=== PATIENT | female | born 1980 | race Caucasian/White ===

== ENCOUNTER → 2016-06-12 | Outpatient (CLI) | payer BC ==
[~2016-06-12] MED LIST: PRENTAB26 PO
[2016-06-12 12:20] LABS: HEMATOCRIT 35.5 % (37-47)
[2016-06-12 12:45] LABS: GTGD 50 Grams
[2016-06-12 15:02] LABS: URINE APPEARANCE CLEAR (CLEAR); URINE BILIRUBIN NEG (NEG); URINE COLOR YELLOW; URINE NITRITE NEG (NEG); URINE PH 5.5 (4.5-7.5); URINE SPECIFIC GRAVITY 1.018 (1.000-1.030); UROBILINOGEN NEG (NEG)
[2016-06-12 15:14] LABS: MANUAL MICROSCOPIC REQUIRED? NO; REVIEW REQ? NO
== END | disposition home or self-care (01) ==
LOC: C.LAB1850 10:50
PROVIDERS: ATTEND Obstetrics & Gynecology
DX: O09.523 Supervision of elderly multigravida, third trimester (principal)

== ENCOUNTER → 2016-08-08 | Outpatient (CLI) | payer BC | END | disposition home or self-care (01) | LOC: C.LABSPEC 15:19 | PROVIDERS: ATTEND Obstetrics & Gynecology | DX: O09.523 Supervision of elderly multigravida, third trimester (principal) ==

== ENCOUNTER 2016-08-19 14:19 | Inpatient (IN) | payer BC ==
[~2016-08-19] VITALS: Ht 165.1 cm; Wt 123.6 kg
[2016-08-19] MEDS ORDERED: LACTATED RINGER'S 1000ML 1,000 ML IV SCH (14:50)
[2016-08-19] MEDS ORDERED: LACTATED RINGER'S 1000ML 1,000 ML IV PRN (14:50)
[2016-08-19] MEDS ORDERED: LACTATED RINGER'S 1000ML 500 ML IV PRN (14:53)
[2016-08-19] MEDS ORDERED: OXYTOCIN 30 UNITS/500ML NSS IV PRN ×2 (15:00→20:30)
[2016-08-19 15:35] LABS: HEMATOCRIT 34.3 % (37-47); MEAN CELL VOLUME 84.3 fL (80-100); MEAN CORPUSCULAR HEMOGLOBIN 29.2 pg (25-34); MEAN CORPUSCULAR HGB CONC 34.7 g/dl (32-36); MEAN PLATELET VOLUME 11.2 fL (7.4-10.4); PLATELET COUNT 208 K/uL (130-400); RED BLOOD COUNT 4.07 M/uL (4.2-5.4); WHITE BLOOD COUNT 11.45 K/uL (4.8-10.8)
[2016-08-19] MEDS ORDERED: PRENTAB26 PO (15:58)
[2016-08-19 15:59] VITALS: Ht 165.1 cm; Wt 123.6 kg
[2016-08-19] MEDS ORDERED: BENZOCAINE 20% AER SPR 82.5 GM CAN EXT PRN (20:30)
[2016-08-19] MEDS ORDERED: LANOLIN OINT EXT PRN ×2 (20:30)
[2016-08-19] MEDS ORDERED: ACETAMINOPHEN/CODEINE 300/30MG TAB PO PRN ×2 (20:30)
[2016-08-19] MEDS ORDERED: SUPERCREAM 0.870 % 15GM JAR EXT PRN (20:30)
[2016-08-19] MEDS ORDERED: ACETAMINOPHEN 325 MG TAB PO PRN (20:30)
--- NOTE | 2016-08-19 21:03 | DELIVERY SUMMARY ---
DATE OF OPERATION: 08/19/2016 DELIVERY NOTE: The patient is a 36-year-old 2, para 1-0-0-1 white female, EDC of 09/02/2016, who presented with leaking amniotic fluids at approximately 2300 hours on 08/18/2016. She had presented at the office for a check for rupture of membranes and indeed she was ruptured for clear fluid. She was sent to labor and delivery. Because of the absence of regular ctns. Pitocin augmentation of labor was begun. She moved rapidly to full dilation, pushed effectively over intact perineum for delivery of a viable male infant. Mouth and nasopharynx were suctioned on the perineum, the was placed on the mother's abdomen for further attention and stimulation. There was vigorous crying and the infant was moving all 4 limbs. The cord was clamped and cut and the placenta was expressed intact with a 3-vessel cord. 1% lidocaine was used to anesthetize the first degree perineal tear, which was repaired with 3-0 chromic in the usual fashion. Estimated blood loss was 300 mL. Mother and are doing well after delivery. I attest to the content of the Intraoperative Record and any orders documented therein. Any exceptions are noted below. MTDD
[2016-08-19 23:50] VITALS: BP 131/85; PULSE 98; TEMP 36.8; O2SAT 98
[2016-08-20 04:30] VITALS: BP 136/83; PULSE 88; TEMP 36.8; O2SAT 98
[2016-08-20] MEDS: IBUPROFEN 600 MG TAB PO PRN ×3 (04:45→15:08)
--- NOTE | 2016-08-20 07:03 | Progress Note ---
Subjective Aug 20, 2016. Subjective conversation w/ patient, physical exam Ambulation: ambulating normally Voiding: no voiding problems Passing Gas: No Diet Tolerance: Regular Diet Lochia: Moderate Feeding Type: Breast Feeding Review of Systems Constitutional: No chills, No fever Respiratory: No cough, No shortness of breath Cardiac: No chest pain, No claudication Objective Vital Signs Date Time Temp Pulse Resp B/P Pulse Ox O2 Delivery O2 Flow Rate FiO2 08/20/16 04:30 36.8 88 18 136/83 98 Room Air 08/19/16 23:50 98 Room Air 08/19/16 23:50 36.8 98 20 131/85 98 Room Air Physical Exam General Appearance: WELL-APPEARING, NO APPARENT DISTRESS Respiratory/Chest: lungs clear, no accessory muscle use Cardiovascular: regular rate, rhythm, no murmur Fundus: Firm, Non-Tender, Relation to Umbilicus (at the umbilicus) Extremities: non-tender, no calf tenderness Laboratory Results Last 24 Hours Test 08/19/16 15:20 08/20/16 04:44 White Blood Count 11.45 K/uL Red Blood Count 4.07 M/uL Hemoglobin 11.9 g/dL Hematocrit 34.3 % Mean Corpuscular Volume 84.3 fL Mean Corpuscular Hemoglobin 29.2 pg Mean Corpuscular Hemoglobin Concent 34.7 g/dl RDW Standard Deviation 42.3 fL RDW Coefficient of Variation 13.8 % Platelet Count 208 K/uL Mean Platelet Volume 11.2 fL Assessment and Plan Post- Day#: 1 Continue Routine Care: Resident Physician Supervision Note: I interviewed and examined the patient. Discussed with Dr. Price and agree with findings and plan as documented in the note. Any exceptions or clarifications are listed here: [None] Documented By: Saira Cavazos s/p Day 1 - vitals reviewed and wnl - Hgb 11.9 yesterday - blood: O- (baby also O-), Rubella immune, GBS negative - encourage ambulation, encourage , monitor lochia - patient doing well clinically - CONTINUE ROUTINE POST CARE
[2016-08-20 07:16] LABS: HEMATOCRIT 30.4 % (37-47)
[2016-08-20 10:00] VITALS: BP 126/82; PULSE 93; TEMP 36.7; O2SAT 98
[2016-08-20] MEDS: PRENATAL VITAMIN TAB PO SCH (10:05)
[2016-08-20] MEDS: DOCUSATE SODIUM 100 MG CAP PO SCH ×2 (10:05→19:49)
[2016-08-20 12:30] VITALS: BP 115/76; PULSE 89; TEMP 36.8
[2016-08-20 14:55] VITALS: BP 125/81; PULSE 87; TEMP 36.8
[2016-08-20] MEDS ORDERED: BISACODYL 5 MG TABEC PO SCH (20:00)
[2016-08-20 23:30] VITALS: BP 130/76; PULSE 81; TEMP 36.7
[2016-08-21 08:00] VITALS: BP 137/83; PULSE 77; TEMP 36.7
--- NOTE | 2016-08-21 08:08 | Progress Note ---
Subjective Aug 21, 2016. Subjective conversation w/ patient, physical exam Ambulation: ambulating normally Voiding: no voiding problems Passing Gas: Yes Diet Tolerance: Regular Diet Lochia: Small Feeding Type: Breast Feeding Review of Systems Constitutional: No chills, No fever, No sweats Respiratory: No cough, No shortness of breath Cardiac: No chest pain, No claudication Objective Vital Signs Date Time Temp Pulse Resp B/P Pulse Ox O2 Delivery O2 Flow Rate FiO2 08/20/16 23:30 Room Air 08/20/16 23:30 36.7 81 18 130/76 Room Air 08/20/16 14:55 36.8 87 18 125/81 Room Air 08/20/16 14:55 Room Air 08/20/16 12:30 36.8 89 18 115/76 Room Air 08/20/16 10:00 36.7 93 20 126/82 98 Room Air 08/20/16 10:00 98 Room Air Physical Exam General Appearance: WELL-APPEARING, NO APPARENT DISTRESS Respiratory/Chest: lungs clear, no accessory muscle use Cardiovascular: regular rate, rhythm, no murmur Fundus: Firm, Non-Tender, Relation to Umbilicus (at the umbilicus) Extremities: non-tender, no calf tenderness Assessment and Plan Post- Day#: 2 Continue Routine Care: s/p Day 2 - vitals reviewed and wnl - Hgb 10.5 yesterday - blood: O- (baby also O-), Rubella immune, GBS negative - encourage ambulation, encourage , monitor lochia - patient doing well clinically - patient counselled on discharge instructions - PATIENT TO BE DISCHARGED TODAY Resident Physician Supervision Note: I was present with Dr. Price during the history and exam. I discussed the case with the resident and agree with the findings and plan as documented in the note. Any exceptions or clarifications are listed here: PPD2 doing well, discharge home today. Documented By: Leighann Toth
--- NOTE | 2016-08-21 08:09 | Discharge Instructions ---
Discharge Instructions Date of Service Aug 21, 2016. Admission Reason for Admission: Ruptured Membranes Discharge Discharge Diagnosis / Problem: Spontaneous Vaginal Delivery Discharge Goals Goal(s): Routine recovery after delivery Medications Continue Dispensed Medications: supercream, dermaplast, tucks, lansinoh Activity Recommendations Activity Limitations: per Instructions/Follow-up section . Instructions / Follow-Up Instructions / Follow-Up ACTIVITY RECOMMENDATIONS: * Gradual return to full activity over the next 2-3 weeks. * No lifting - nothing heavier than baby over the next 2-3 weeks. * Do not engage in vigorous exercise, sexual activity or sports until cleared by your physician. * Do not drive or operate any motorized equipment until cleared by your physician. * You may shower/bathe daily. MEDICATIONS: For discomfort or pain, you may use Acetaminophen (Tylenol), Ibuprofen (Advil), or Naproxen (Aleve) following the package directions. For constipation you may use Colace following the package directions. BREAST CARE: If you are not breast feeding: * Wear a supportive bra 24 hours a day for one to two weeks. * Avoid stimulating your breasts and nipples as much as possible during the first few weeks after delivery. * When taking a shower, have the warm water hit your back, not breasts. * When your breasts feel full, apply ice packs. Usually three to four times a day helps ease the discomfort. * Take a mild pain medication (Tylenol / Motrin) when you are uncomfortable. If breast feeding: * Use breast milk to lubricate nipples. Lansinoh cream may be used for sore nipples. You do not need to remove cream prior to breast feeding. If using a different brand of cream, check the label for directions regarding removal of cream prior to nursing. * Wear a supportive bra. * If having problems with breasts or breast feeding, call a window covering sales consultant or your health care provider. EPISIOTOMY CARE: After delivery, if you have an episiotomy (stitches), the following steps will ease discomfort and aid healing. * For the first 24 hours after delivery, place ice packs next to your episiotomy to help reduce swelling. * After the first 24 hour-period, sitz baths, either portable or in the tub, are suggested. A shower with a shower arm sprayed over the episiotomy may be comforting. * Jennifer care should be done after each voiding and bowel movement. Squirt warm water from a plastic bottle over the perineum (region of the body between the anus and urinary opening) and pat dry. * Use Dermoplast to ease discomfort. Shake container. [place] directly over the episiotomy. Place a Tucks on a clean sanitary pad next to your episiotomy. SPECIAL CARE INSTRUCTIONS: When you are discharged from the hospital, it is important for you to follow the instructions listed below: * During the first week at home, you should be able to care for yourself and your baby. In addition, the usual light household activities are encouraged. * Limit your activities to the way you feel. Do not try to clean the house or move furniture. Be sensible. * If you actively engage in sports and have done so up until the time of your delivery, you may resume these activities as soon as you feel able. This may take up to one month or even longer. Use good judgment. * Continue to take your vitamins for at least six weeks after the of your baby. * Your diet need not be limited unless you were on a special diet before your delivery. Breast-feeding mothers need around 2500 calories per day and at least 64-80 ounces of fluid per day (8 to 10 glasses). * You should eat foods from the four major food groups. Crash diets or fad diets are to be avoided. Eating lean meats, fresh fruits and vegetables, low-fat dairy products, high fiber foods and a regular exercise program, will help you get back to your pre- weight without putting your health at risk. * Constipation is sometimes a problem after delivery. Take a mild laxative as needed. If breast feeding, Milk of Magnesia is acceptable to use. You may use a suppository or Fleets enema if no episiotomy. * A daily shower or tub bath is suggested. Be sure to thoroughly and gently dry the perineum. * A bloody vaginal discharge will usually continue until around four weeks post . A small amount of bleeding may continue for as long as six weeks. Vaginal discharge changes from the bright red bleeding after delivery to pink then brownish and finally yellowish-pink before becoming white and disappearing. * Bleeding may increase with activity. Your first period may come in 4-8 weeks. If you are breast feeding, your period may be delayed even longer. * [place] (sex) can begin whenever both you and your partner feel comfortable and do not have any form of genital infection. It is recommended that you wait at least six weeks for internal and external healing to occur. If you have questions, please talk to your health care practitioner. A condom should be used to prevent infection and . * Foreplay, gentle intercourse and lubrication is very important the first several times to prevent pain. A water-based lubricant such as K-Y jelly or Astroglide may be used. * If you have RH negative blood and your baby is RH positive, you will receive RHOGAM by injection prior to discharge. The nurse will give you a card to keep with you that has the date and place that you received RHOGAM after delivery. * During your care, you had a Rubella screen done to check for the presence of rubella antibodies in your blood. If your test was negative, you will receive a Rubella vaccine prior to discharge. This vaccine may cause a fever, soreness at the injection site and flu-like symptoms. If these symptoms persist, notify your health care practitioner. is not advised for one month after a Rubella vaccine. * Verbalizes understanding of car seat law as reviewed with patient nursing. * Car Seat hand-out given and reviewed with patient by nursing. * Shaken baby information reviewed with patient by nursing. Call you doctor if: * Heavy bleeding (saturating several pads an hour) or passing clots the size of your fist. * A fever >101 degrees F (38.3 degrees C) on two occasions four hours apart and /or chills. * Unusual pain in the pelvic or vaginal areas. * "Baby Blues" lasting longer than two weeks. If you have any questions or concerns, call your health care practitioner at . FOLLOW UP VISIT: * Please call the office at to schedule a 6 week examination. It is important you keep this appointment. It is important for you to make arrangements for either yearly or twice yearly check-ups thereafter. Current Hospital Diet Patient's current hospital diet: Regular OB Diet Discharge Diet Recommended Diet: Regular Diet Pending Studies Studies pending at discharge: no Medical Emergencies . Who to Call and When: Medical Emergencies: If at any time you feel your situation is an emergency, please call 911 immediately. . Non-Emergent Contact Non-Emergency issues call your: Primary Care Provider, Jammer Operator . . "Provider Documentation" section prepared by Leandro Price. VTE Core Measure Inpt VTE Proph given/why not?: Treatment not indicated
[2016-08-21] MEDS: IBUPROFEN 600 MG TAB PO PRN (08:59)
[2016-08-21] MEDS: PRENATAL VITAMIN TAB PO SCH (08:59)
[2016-08-21] MEDS: DOCUSATE SODIUM 100 MG CAP PO SCH (08:59)
[2016-08-21 15:26] VITALS: BP_DIAS 83; PULSE 77; TEMP 36.7
== END 2016-08-21 15:00 | disposition home or self-care (01) | DRG 775 ==
LOC: C.OPB 14:19 → C.LD 14:19 → C.OPB 14:52 → C.LD 14:52 → C.MS4N 23:14
PROVIDERS: ADMIT Obstetrics & Gynecology; ATTEND Obstetrics & Gynecology
PROC: 0HQ9XZZ Repair Perineum Skin, External Approach (ICD-10-PCS; principal; 2016-08-19)
PROC: 10E0XZZ Delivery of Products of Conception, External Approach (ICD-10-PCS; principal; 2016-08-19)
DX: O42.02 Full-term premature rupture of membranes, onset of labor within 24 hours of rupture (principal); O70.0 First degree perineal laceration during delivery; Z37.0 Single live birth; Z3A.38 38 weeks gestation of pregnancy

== ENCOUNTER 2018-10-20 15:57 | Inpatient (IN) ==
[2018-10-20] MEDS ORDERED: OXYTOCIN 30 UNITS/500 ML BAG IV PRN ×3 (16:27→21:33)
[2018-10-20] MEDS ORDERED: LACTATED RINGER'S 1,000 ML IV PRN (16:27)
[2018-10-20 17:00] LABS: Hematocrit (blood only) 33.8 % (37-47); Hemoglobin 12.2 g/dL (12.0-16.0); Mean Platelet Volume 10.5 fL (7.4-10.4); Platelet Count 228 K/uL (130-400); RDW Coefficient of Variation 14.2 % (11.5-14.5); RDW Standard Deviation 43.1 fL (36.4-46.3); Red Blood Count 4.07 M/uL (4.2-5.4); White Blood Count 12.73 K/uL (4.8-10.8)
[2018-10-20 17:10] LABS: Mean Corpuscular Hgb Conc 36.1 g/dL (32-36)
--- NOTE | 2018-10-20 19:13 | History & Physical Report ---
Date of Service October 20, 2018 Assessment & Plan (1) PROM (premature rupture of membranes): (2) 38 weeks gestation of : admit iv, labs. rec pitocin. risks of delay reviewed now 12hr from prom, infected uterus, infected baby, failure to induce, need for c/s. she accepts pitocin. History of Present Illness Chief Complaint: ruptured membranes Primary Care Provider: Arlin Swift MD 38yo at 38 wks ega presents to L&D with cc as noted. Leaking clear fluid since 730am today. Having some ctx more recently but only called and came to L&D about 430pm today. She is reluctant to have pitocin but did require it for her last labor. No bleeding. +FM. pnc c/b 1. marginal previa--> resolved 2. PTSD--> using medical MJ 3. Rh neg pnl rh neg, ri, gbs neg obh: x 2 gynh: neg paps recently, LEEP in 2009, neg stds pmh: ptsd, depression, asthma psh: christiano, wisdom teeth, oral surgery, LEEP Allergies Allergy/AdvReac Type Severity Reaction Status Date / Time No Known Allergies Allergy Unverified 08/19/16 15:55 Home Medications Home Medications Medication Instructions Recorded Confirmed Type vit no.[id number] 1 tab PO DAILY 10/20/18 10/20/18 History [ Vitamin] Patient History Medical History Arthritis lower back pain Asthma Depression Marginal placenta previa resolved Post-traumatic stress disorder [place] teeth extracted Surgical History H/O LEEP H/O oral surgery Hx of cholecystectomy Social History Preferred Language: Tajik marital status: Feels Safe at Home: Yes Safety Concerns: Feels Safe At This Time Smoking Status: Current some day smoker Tobacco Type: e-cigarettes Cigarettes Per Day: vapes medical marijuana PRN 1-2 uses/week Do You Dip or Chew Tobacco: No Second Hand Exposure: No Tobacco Cessation Education Requested by Patient: No Hx Alcohol Use: No Hx Substance Use: Yes substance use type: marijuana Substance Use Type Other:: vapes medical marijuana one to two times weekly on average Last Used Substance: Days (ago) Last Used Substance Other:: 10/19/18 Review of Systems per hpi Physical Exam Constitutional: WD/WN, vitals as above Respiratory: normal respiratory effort, lungs clear to auscultation Cardiovascular: Rate/Rhythm: regular rate and regular rhythm Gastrointestinal (Abdomen): gravid nt, efw 7-8# Musculoskeletal: no edema Genitourinary: OB Exam Abdomen: + estimated weight (7-8#) Manual OB Exam: + cervical dilation 5 cm, + cervical effacement 80%, + station 0 and + amniotic fluid (gross srom) clear OB Exam Monitor Tracing: + external FHT monitor used (145 mod variability) and + external uterine monitor used (q4-5) Results & Data Vital Signs (Past 12 Hours) Vital Signs Temp Pulse Resp BP 10/20/18 19:06 146 H 133/82 10/20/18 17:32 36.9 C 18 10/20/18 16:16 96 H 133/80
--- NOTE | 2018-10-20 20:19 | Obstetrical Progress Note ---
Date of Service October 20, 2018 Assessment & Plan (1) 38 weeks gestation of : (2) PROM (premature rupture of membranes): good cx change. will hold off on pit. fhts categ 2 Subjective feeling more pain with ctx. Physical Exam Constitutional: WD/WN, vitals as above Genitourinary: OB Exam Monitor Tracing: + external FHT monitor used (155 mod variability, early and variable decels), + external uterine monitor used (q3) and + category II Results & Data Vital Signs (Past 12 Hours) Vital Signs Temp Pulse Resp BP 10/20/18 19:06 37.1 C 146 H 18 133/82 10/20/18 18:00 36.9 C 18 10/20/18 17:32 36.9 C 18 10/20/18 16:16 96 H 133/80
[2018-10-20] MEDS ORDERED: OXYTOCIN 20 UNITS in LACTATED RINGER'S 1,000 ML IV SCH (21:01)
[2018-10-20] MEDS ORDERED: ACETAMINOPHEN 325 MG TAB PO PRN (21:01)
--- NOTE | 2018-10-20 21:16 | Delivery Summary ---
DATE OF OPERATION: 10/20/2018 DESCRIPTION OF PROCEDURE: The patient dilated to complete and pushed to deliver viable female infant, Apgars 8 and 9 via over small second-degree perineal laceration. With delivery of the cephalic a nuchal cord was noted. An attempt at stopping maternal expulsive efforts were not successful. The cord then sheared and the baby was rapidly delivered. The cord stump was then clamped on the side and the nose and mouth were bulb suctioned. Infant was then placed on the maternal abdomen and was crying. Cord blood was obtained. The placenta was delivered spontaneous and intact, 3-vessel cord. Hemostasis achieved with dilute Pitocin and uterine massage. Cervix and sulci intact. Small perineal laceration repaired with 3-0 Vicryl after 1% local lidocaine injection for anesthesia. EBL 300 mL. Mother and baby stable in recovery. I attest to the content of the Intraoperative Record and any orders documented therein. Any exceptions are noted below. MTDD
[2018-10-20] MEDS: IBUPROFEN 600 MG TAB PO PRN (21:32)
[2018-10-20] MEDS ORDERED: SUPERCREAM 0.870% 15 GM JAR EXT PRN (21:33)
[2018-10-20] MEDS ORDERED: DIPHTHERIA/TETANUS/PERTUSSIS 0.5 ML SYR/VIAL IM ONE (21:33)
[2018-10-20] MEDS ORDERED: BENZOCAINE 20% AER SPR 82.5 GM CAN EXT PRN (21:33)
[2018-10-20] MEDS ORDERED: OXYCODONE/ACETAMINOPHEN 5mg/325mg TAB PO PRN (21:33)
[2018-10-20] MEDS ORDERED: HYDROCORTISONE ACETATE 25 MG SUPP PR PRN (21:33)
[2018-10-20] MEDS ORDERED: LACTATED RINGER'S 1,000 ML IV SCH (21:33)
[2018-10-20] MEDS: DOCUSATE SODIUM 100 MG CAP PO SCH (22:35)
[2018-10-21] MEDS: IBUPROFEN 600 MG TAB PO PRN ×3 (02:51→19:55)
--- NOTE | 2018-10-21 06:56 | Obstetrical Progress Note ---
Date of Service <James Bonilla MD - Last Filed: 10/21/18 06:56> October 21, 2018 Assessment & Plan <James Bonilla MD - Last Filed: 10/21/18 06:56> (1) (spontaneous vaginal delivery): 38 year old day 1 s/p at 38 and 1 initially presented with PROM yesterday 10/20 was given pitocin to augment labor and delivered night of 10/20 * Vital Signs Reviewed and WNL * Blood type O-, GBS-, Rubella immune * Pain well controlled with motrin * Hemoglobin 12.2 prior to delivery * Encouraged patient to continue to ambulate and work on breast feeding today Subjective <James Bonilla MD - Last Filed: 10/21/18 06:56> Ambulation: ambulating normally Voiding: no voiding problems Passing Gas:: Yes Diet Tolerance:: regular diet Lochia:: Small Feeding Type:: breast feeding Current Pain Level(1-10): 4 Constitutional: no fever and no chills Respiratory: no cough and no dyspnea Cardiovascular: no chest pain, no dyspnea and no calf pain Gastrointestinal: no nausea and no vomiting Physical Exam <James Bonilla MD - Last Filed: 10/21/18 06:56> Vital Signs (Past 24 Hours) Last Vital Signs Temp 36.8 C 10/21/18 04:15 Pulse 81 10/21/18 04:15 Resp 18 10/21/18 04:15 BP 99/58 L 10/21/18 04:15 Constitutional well developed, well nourished, + obese, cooperative and comfortable Respiratory normal respiratory effort, lungs clear to auscultation Cardiovascular Rate/Rhythm: regular rate and regular rhythm Heart Sounds: no click, no gallop, no murmur and no cardiac rub Extremities: no calf tenderness Gastrointestinal (Abdomen) Percussion/Palpation: abdomen soft; abdomen nontender Genitourinary OB Exam Abdomen: + fundal height (Fundal height difficult to assess due to body habitus) <Ruma Chapman MD, FACOG - Last Filed: 10/21/18 07:57> Co-Signing Physician Notes Resident Physician Supervision Note: I was present with Dr. Powell during the history and exam. I discussed the case with the resident and agree with the findings and plan as documented in the note. Any exceptions or clarifications are listed here: doing well. denies complaints. rh neg--rhogam eval. routine care. ff 2 down. . Documented By: Ruma Chapman MD, FACOG Resident Activity Tracking <James Bonilla MD - Last Filed: 10/21/18 06:56> Resident Involvement: Resident Care Provided Care Provided: OB Delivery
[2018-10-21] MEDS: DOCUSATE SODIUM 100 MG CAP PO SCH ×2 (08:50→19:55)
[2018-10-21 12:48] VITALS: O2SAT 99
[2018-10-22] MEDS: IBUPROFEN 600 MG TAB PO PRN ×2 (04:10→09:04)
--- NOTE | 2018-10-22 06:34 | Obstetrical Progress Note ---
Date of Service <James Bonilla MD - Last Filed: 10/22/18 06:34> October 22, 2018 Assessment & Plan <James Bonilla MD - Last Filed: 10/22/18 06:34> (1) (spontaneous vaginal delivery): 38 year old day 2 s/p at 38 and 1 initially presented with PROM 10/20 was given pitocin to augment labor and delivered night of 10/20 * Vital Signs Reviewed slightly tachycardic, but asymptomatic * Blood type O-, GBS-, Rubella immune * Pain well controlled * Encouraged patient to continue to ambulate and work on breast feeding today * Went over all discharge instructions with patient. Subjective <James Bonilla MD - Last Filed: 10/22/18 06:34> Ambulation: ambulating normally Voiding: no voiding problems Passing Gas:: Yes Diet Tolerance:: regular diet Lochia:: Small Feeding Type:: breast feeding Current Pain Level(1-10): 0 Ms. Courtney is doing very well this morning, has no concerns and asked appropriate questions regarding discharge instructions. She feels she is ready to return home today. Constitutional: no fever and no chills Respiratory: no cough and no dyspnea Cardiovascular: no chest pain, no dyspnea and no calf pain Gastrointestinal: no abdominal pain, no nausea and no vomiting Physical Exam <James Bonilla MD - Last Filed: 10/22/18 06:34> Vital Signs (Past 24 Hours) Last Vital Signs Temp 36.6 C 10/21/18 23:20 Pulse 102 H 10/21/18 23:20 Resp 18 10/21/18 23:20 BP 114/68 10/21/18 23:20 Pulse Ox 99 10/21/18 12:45 Constitutional well developed, well nourished, + obese, cooperative and comfortable Respiratory normal respiratory effort, lungs clear to auscultation Cardiovascular Rate/Rhythm: regular rate and regular rhythm Heart Sounds: no click, no gallop, no murmur and no cardiac rub Extremities: no calf tenderness Gastrointestinal (Abdomen) Percussion/Palpation: abdomen soft; abdomen nontender Genitourinary OB Exam Abdomen: + fundal height (Fundal height difficult to assess due to body habitus but approx at umb) <Niya Simon MD, FACOG - Last Filed: 10/22/18 07:05> Co-Signing Physician Notes Resident Physician Supervision Note: I interviewed and examined the patient. Discussed with Dr. Bonilla and agree with findings and plan as documented in the note. Any exceptions or clarifications are listed here: Doing well. Plan d/c. Instructions given. Documented By: Niya Simon MD, FACOG Resident Activity Tracking <James Bonilla MD - Last Filed: 10/22/18 06:34> Resident Involvement: Resident Care Provided Care Provided: OB Delivery
[2018-10-22] MEDS: DOCUSATE SODIUM 100 MG CAP PO SCH (09:03)
[2018-10-22 09:51] VITALS: BP 104/64; PULSE 86; TEMP 98.2
== END 2018-10-22 14:10 | disposition home or self-care (01) | DRG 807 ==
LOC: 4S1 15:57 → OPB 15:57 → 4S1 16:27 → 4S2 23:43
DX: O99.52 Diseases of the respiratory system complicating childbirth; O69.89X0 Labor and delivery complicated by other cord complications, not applicable or unspecified; F43.10 Post-traumatic stress disorder, unspecified; O69.81X0 Labor and delivery complicated by cord around neck, without compression, not applicable or unspecified; O99.344 Other mental disorders complicating childbirth; F32.9 Major depressive disorder, single episode, unspecified; O42.02 Full-term premature rupture of membranes, onset of labor within 24 hours of rupture; Z79.899 Other long term (current) drug therapy; Z67.91 Unspecified blood type, Rh negative; Z37.0 Single live birth; Z3A.38 38 weeks gestation of pregnancy; O76 Abnormality in fetal heart rate and rhythm complicating labor and delivery; O70.1 Second degree perineal laceration during delivery; J45.909 Unspecified asthma, uncomplicated